=== PATIENT | male | born 1990 | race Caucasian/White ===

== ENCOUNTER 2023-01-21 22:24 | Emergency (ER) | payer SELFPAY ==
[2023-01-21] MEDS ORDERED: Ondansetron 4 MG Tab.DIS PO ONE (22:56)
== END 2023-01-22 00:18 | disposition left against medical advice (07) ==
LOC: MW.ED 22:24
DX: Z53.29 Procedure and treatment not carried out because of patient's decision for other reasons (principal)
CPT/HCPCS: A9270-GY